=== PATIENT | female | born 1990 | race Caucasian/White ===

== ENCOUNTER 2017-12-21 09:15 | Emergency (ER) | payer BC ==
[2017-12-21 09:35] VITALS: BP 145/101
--- NOTE | 2017-12-21 11:18 | EDM.PDOC ---
ED HPI GENERAL MEDICAL PROBLEM - General Chief Complaint: Genitourinary Problem Stated Complaint: KIDNEY INFECTION SENT BY CLINIC Time Seen by Provider: 12/21/17 11:02 Source of Information: Reports: Patient History Limitations: Reports: No Limitations - History of Present Illness INITIAL COMMENTS - FREE TEXT/NARRATIVE: The patient states that she developed right flank pain and frequent cloudy urination this past 12/19/2017. She denies having had recent dysuria. She had nausea, but no emesis, and no fever. She was seen by Lisa Gonzalez yesterday, 12/20/2017, where a urinalysis collected by clean-catch demonstrated 2+ occult blood with 5-10 RBCs, nitrite positive, 3+ leukocyte esterase, 5-10 WBCs, 5-10 epithelial cells, and moderate bacteria. A urine culture was ordered, and the patient was started on ciprofloxacin 500 mg po BID , which she states she has now taken 3 doses of. The urine culture is growing 60 -70,000 CFU/ml of gram-negative rods, along with mixed deacno suggestive of contamination. The patient now presents to the ED with a concern that her urinary tract infection is getting worse, since she has now developed left flank pain. She has still not developed a fever. The patient reports that when she gets urinary tract infections, they present with flank pain, and that she tends to get 2-3 urinary tract infections per year. The patient is sexually active. The patient does not have a PCP. Bilateral Flank Pain Score (Numeric/FACES): 7 - Related Data Allergies Allergy/AdvReac Type Severity Reaction Status Date / Time cefpodoxime proxetil Allergy Other Verified 12/21/17 09:34 [From Vantin] shellfish derived Allergy Other Verified 12/21/17 09:34 Home Meds: Home Meds Ibuprofen [Motrin] 200 - 800 mg PO Q6H PRN #50 tablet 02/24/15 [Rx] Ciprofloxacin HCl [Cipro] 500 mg PO BID 12/21/17 [History] FLUoxetine [PROzac] 1 cap PO DAILY 12/21/17 [History] MV-Mn/Iron/FA/Herbal Cmplx#190 [Vitamin D3 Complete Caplet] 500 mg PO DAILY [History] buPROPion HCl [Wellbutrin Xl] 1 tab PO DAILY 12/21/17 [History] Past Medical History Psychiatric History: Reports: Anxiety, Depression - Infectious Disease History Infectious Disease History: Reports: C-Difficile, Chicken Pox, Shingles - Past Surgical History HEENT Surgical History: Reports: Tonsillectomy GI Surgical History: Reports: Appendectomy Female Surgical History: Reports: Section (x 1) Social & Family History - Family History Family Medical History: Noncontributory - Tobacco Use Smoking Status *Q: Former Smoker Years of Tobacco use: 4 Packs/Tins Daily: 0.3 Month Tobacco Last Used: Quit Nov 2017 Second Hand Smoke Exposure: No - Alcohol Use Alcohol Use History: Yes Days Per Week of Alcohol Use: 0 Alcohol Use Frequency: Socially - Recreational Drug Use Recreational Drug Use: No - Living Situation & Occupation Living situation: Reports: , with Spouse, with Family (1 child) Occupation: Employed (timers inspector production) ED ROS GENERAL - Review of Systems Review Of Systems: ROS reveals no pertinent complaints other than HPI. ED EXAM, RENAL/ - Physical Exam Exam: See Below Exam Limited By: No Limitations General Appearance: Alert, WD/WN, No Apparent Distress Eye Exam: Bilateral Eye: Normal Inspection Ears: Normal External Exam, Hearing Grossly Normal Nose: Normal Inspection, No Blood Throat/Mouth: Normal Inspection, Normal Lips, Normal Voice, No Airway Compromise Head: Atraumatic, Normocephalic Neck: Normal Inspection, Full Range of Motion Respiratory/Chest: No Respiratory Distress, Lungs Clear, Normal Breath Sounds, No Accessory Muscle Use Cardiovascular: Normal Peripheral Pulses, Regular Rate, Rhythm, No Gallop, No JVD, No Murmur, No Rub GI/Abdominal: Normal Bowel Sounds, Soft, No Organomegaly, No Distention, No Abnormal Bruit, No Mass, Tender (Mild, upper abdominal only. No lower abdominal or suprapubic tenderness.), Other (Obese) Rectal (Female) Exam: Deferred Back Exam: Normal Inspection, Full Range of Motion, CVA Tenderness (R). No: CVA Tenderness (L) Extremities: Normal Inspection, Normal Range of Motion, No Pedal Edema, Normal Capillary Refill Neurological: Alert, Oriented, Normal Cognition, No Motor/Sensory Deficits Psychiatric: Normal Affect Skin Exam: Warm, Dry, Intact, Normal Color, No Rash Course - Vital Signs Last Recorded V/S: Last Vital Signs Temp 36.4 C 12/21/17 09:27 Pulse 64 12/21/17 09:27 Resp 16 12/21/17 09:27 BP 145/101 H 12/21/17 09:27 Pulse Ox 97 12/21/17 09:27 - Orders/Labs/Meds Labs: Laboratory Tests 12/21/17 12/21/17 Range/Units 10:15 11:11 Urine Color Yellow (Yellow) Urine Appearance Clear (Clear) Urine pH 8.5 H (5.0-8.0) Ur Specific [place] 1.020 (1.005-1.030) Urine Protein Negative (Negative) Urine Glucose (UA) Negative (Negative) Urine Ketones Negative (Negative) Urine Occult Blood Negative (Negative) Urine Nitrite Negative (Negative) Urine Bilirubin Negative (Negative) Urine Urobilinogen 0.2 (0.2-1.0) Ur Leukocyte Esterase Negative (Negative) Urine RBC 0-5 (0-5) /hpf Urine WBC 0-5 (0-5) /hpf Ur Epithelial Cells 0-5 (0-5) /hpf Urine Bacteria Not seen (FEW) /hpf Urine Mucus Few (FEW) /hpf Urine HCG, Qual Negative (NEGATIVE) Meds: Medications Discontinued Medications Generic Name Dose Route Start Last Admin Trade Name Freq PRN Reason Stop Dose Admin Ibuprofen 600 mg 12/21/17 11:40 12/21/17 11:54 Motrin PO 12/21/17 11:41 600 mg ONETIME ONE Administration - Re-Assessments/Exams Free Text/Narrative Re-Assessment/Exam: 12/21/17 11:41 Test results discussed with the patient. Today's urinalysis is entirely normal. Yesterday's urinalysis is consistent with a UTI, although it is conceivable that the abnormalities were due to contamination. We will not know for sure until the final urine culture is available. Nevertheless, I think it highly likely that the patient in fact has a UTI, but with today's normal UA results, the ciprofloxacin is effective, and I am not recommending a switch to a different antibiotic. I'm recommending that the patient take [id number] ibuprofen as needed for discomfort. Departure - Departure Time of Disposition: 11:43 Disposition: Home, Self-Care 01 Condition: Good Clinical Impression: UTI (urinary tract infection) - Discharge Information Instructions: Urinary Tract Infection, Adult Referrals: Dinius,Lisa L, PA [Primary Care Provider] - Forms: ED Department Discharge Additional Instructions: You were seen in the emergency room for bilateral flank pain, urinary frequency , and nausea. Workup in the ER included a repeat urinalysis and urine test. Today's urinalysis is entirely normal. It was compared to yesterday's urinalysis , which was consistent with a urinary tract infection. This indicates that the ciprofloxacin that you are on is effective in treating your urinary tract infection, and we are not recommending a switch to a different antibiotic. Stay adequately hydrated. Take [id number] Tylenol or ibuprofen as needed for discomfort. If any other problems, please do not hesitate to return to the ER.
[2017-12-21] MEDS ORDERED: Ibuprofen 600 MG Tab PO ONE (11:40)
== END 2017-12-21 11:57 | disposition home or self-care (01) ==
LOC: JD.ED 09:15
DX: N39.0 Urinary tract infection, site not specified (principal); Z88.1 Allergy status to other antibiotic agents; Z91.013 Allergy to seafood; Z79.899 Other long term (current) drug therapy; Z87.891 Personal history of nicotine dependence
CPT/HCPCS: 81001; 81025; 99284; A9270; P9612; 99282

== ENCOUNTER 2019-08-10 17:01 | Emergency (ER) | payer BC ==
[2019-08-10 17:11] VITALS: BP 136/90; PULSE 61
[2019-08-10] MEDS ORDERED: Sodium Chloride 0.9% 10 ML Syringe FLUSH PRN (17:32)
[2019-08-10] MEDS ORDERED: Lactated Ringers 1,000 ML IV SCH (17:45)
--- NOTE | 2019-08-10 19:03 | US ---
Bilateral upper extremity venous ultrasound: Duplex and color flow imaging was obtained of the right and left internal, subclavian, axillary, brachial, cephalic, basilic, radial and ulnar veins. Findings: Normal phasic flow, augmentation and compression is seen. Impression: 1. No evidence of venous thrombosis within the right or left upper extremities. Diagnostic code #1
--- NOTE | 2019-08-10 19:46 | EDM.PDOC ---
ED HPI GENERAL MEDICAL PROBLEM - General Chief Complaint: General Stated Complaint: RHABDOMYOLYSIS,SENT BY DR Olguin Seen by Provider: 08/10/19 17:17 Source of Information: Reports: Patient, Provider History Limitations: Reports: No Limitations - History of Present Illness INITIAL COMMENTS - FREE TEXT/NARRATIVE: The patient was sent over from the walk in clinic for possible rhabdomyolisis or DVTs in her arms. She worked out on Wednesday and the next day her arms were sore and then they swelled up in the upper arm and forearms. She said she also did not feel right she was a little confused at times and had generalized weakness. She noticed no dark urine. She has no fever, chills, cough, chest pain or shortness of breath. She has no abdominal pain, nausea or vomiting. Onset: Gradual Duration: Day(s): (4) Location: Reports: Upper Extremity, Left, Upper Extremity, Right Quality: Reports: Sharp Severity: Moderate Improves with: Reports: None Worsens with: Reports: None Associated Symptoms: Reports: No Other Symptoms Bilateral Arm Pain Score (Numeric/FACES): 4 - Related Data Allergies Allergy/AdvReac Type Severity Reaction Status Date / Time cefpodoxime proxetil Allergy Other Verified 08/10/19 17:11 [From Vantin] shellfish derived Allergy Other Verified 08/10/19 17:11 Home Meds: Home Meds . [No Known Home Meds] 08/10/19 [History] Past Medical History - Past Health History Medical/Surgical History: Denies Medical/Surgical History Genitourinary History: Reports: UTI, Recurrent Psychiatric History: Reports: Anxiety, Depression - Infectious Disease History Infectious Disease History: Reports: C-Difficile, Chicken Pox, Shingles - Past Surgical History HEENT Surgical History: Reports: Myringotomy w Tube(s), Tonsillectomy GI Surgical History: Reports: Appendectomy, Other (See Below) Other GI Surgeries/Procedures: gastric sleeve Female Surgical History: Reports: Section Social & Family History - Family History Family Medical History: Noncontributory - Tobacco Use Smoking Status *Q: Current Some Day Smoker Years of Tobacco use: 5 Packs/Tins Daily: 0.1 - Caffeine Use Caffeine Use: Reports: Energy Drinks - Recreational Drug Use Recreational Drug Use: No - Living Situation & Occupation Living situation: Reports: , with Spouse, with Family (1 child) Occupation: Employed (time study engineer production) ED ROS GENERAL - Review of Systems Review Of Systems: See Below Constitutional: Reports: No Symptoms HEENT: Reports: No Symptoms Respiratory: Reports: No Symptoms Cardiovascular: Reports: No Symptoms Endocrine: Reports: No Symptoms GI/Abdominal: Reports: No Symptoms : Reports: No Symptoms Musculoskeletal: Reports: Other (Edema to both upper arms with pain upon palpation) ED EXAM, GENERAL - Physical Exam Exam: See Below Exam Limited By: No Limitations General Appearance: Alert, No Apparent Distress Ears: Normal External Exam Nose: Normal Inspection Head: Atraumatic, Normocephalic Neck: Normal Inspection Respiratory/Chest: No Respiratory Distress, Lungs Clear, Normal Breath Sounds Cardiovascular: Regular Rate, Rhythm, No Edema, No Murmur GI/Abdominal: Soft, Non-Tender, No Organomegaly, No Mass Back Exam: Normal Inspection Extremities: Other (Edema of both upper arms with pain upon palpation. Good sensation and pulses distally.) Course - Vital Signs Last Recorded V/S: Last Vital Signs Temp 98.2 F 08/10/19 17:08 Pulse 61 08/10/19 17:08 Resp 19 08/10/19 17:08 BP 136/90 08/10/19 17:08 Pulse Ox 100 08/10/19 17:08 - Orders/Labs/Meds Orders: Active Orders 24 hr Category Date Time Status Cardiac Monitoring [RC] . DIRECTED Care 08/10/19 17:32 Active Peripheral IV Care [RC] . DIRECTED Care 08/10/19 17:33 Active UA W/MICROSCOPIC [URIN] Stat Lab 08/10/19 19:25 Results Lactated Ringers [Ringers, Lactated] 1,000 ml Med 08/10/19 17:45 Active IV .BOLUS Sodium Chloride 0.9% [Saline Flush] Med 08/10/19 17:32 Active 10 ml FLUSH ASDIRECTED PRN Peripheral IV Insertion Adult [OM.PC] Stat Oth 08/10/19 17:32 Ordered Medication Orders Lactated Ringer's (Ringers, Lactated) 1,000 mls @ 500 mls/hr IV .BOLUS SPENSER Last Admin: 08/10/19 17:45 Dose: 500 mls/hr Sodium Chloride (Saline Flush) 10 ml FLUSH ASDIRECTED PRN PRN Reason: Keep Vein Open Last Admin: 08/10/19 17:46 Dose: 10 ml Labs: Laboratory Tests 08/10/19 08/10/19 08/10/19 Range/Units 17:39 17:39 19:25 WBC 6.51 (3.98-10.04) K/mm3 RBC 4.26 (3.98-5.22) M/mm3 Hgb 13.4 D (11.2-15.7) gm/dl Hct 37.3 (34.1-44.9) % MCV 87.6 (79.4-94.8) fl MCH 31.5 (25.6-32.2) pg MCHC 35.9 H (32.2-35.5) g/dl RDW Std Deviation 38.0 (36.4-46.3) fL Plt Count 232 (182-369) K/mm3 MPV 9.4 (9.4-12.3) fl Neut % (Auto) 60.7 (34.0-71.1) % Lymph % (Auto) 30.9 (19.3-51.7) % [place] % (Auto) 5.8 (4.7-12.5) % Eos % (Auto) 2.3 (0.7-5.8) Baso % (Auto) 0.3 (0.1-1.2) % Neut # (Auto) 3.95 (1.56-6.13) K/mm3 Lymph # (Auto) 2.01 (1.18-3.74) K/mm3 [place] # (Auto) 0.38 H (0.24-0.36) K/mm3 Eos # (Auto) 0.15 (0.04-0.36) K/mm3 Baso # (Auto) 0.02 (0.01-0.08) K/mm3 Sodium 140 (136-145) mEq/L Potassium 3.7 (3.5-5.1) mEq/L Chloride 105 (98-107) mEq/L Carbon Dioxide 27 (21-32) mEq/L Anion Gap 11.7 (5-15) BUN 11 (7-18) mg/dL Creatinine 0.9 (0.55-1.02) mg/dL Est Cr Clr Drug Dosing 81.80 mL/min Estimated GFR (MDRD) > 60 (>60) mL/min BUN/Creatinine Ratio 12.2 L (14-18) Glucose 85 (74-106) mg/dL Calcium 8.8 (8.5-10.1) mg/dL Total Bilirubin 0.5 (0.2-1.0) mg/dL AST 129 H (15-37) U/L ALT 163 H (14-59) U/L Alkaline Phosphatase 42 L (46-116) U/L Creatine Kinase 2492 H (26-192) U/L Total Protein 6.9 (6.4-8.2) g/dl Albumin 3.9 (3.4-5.0) g/dl Globulin 3.0 gm/dL Albumin/Globulin Ratio 1.3 (1-2) Urine Color Yellow (Yellow) Urine Appearance Clear (Clear) Urine pH 6.5 (5.0-8.0) Ur Specific [place] 1.020 (1.005-1.030) Urine Protein Negative (Negative) Urine Glucose (UA) Negative (Negative) Urine Ketones Trace H (Negative) Urine Occult Blood 1+ H (Negative) Urine Nitrite Negative (Negative) Urine Bilirubin Negative (Negative) Urine Urobilinogen 1.0 (0.2-1.0) Ur Leukocyte Esterase Negative (Negative) Meds: Medications Generic Name Dose Route Start Last Admin Trade Name Freq PRN Reason Stop Dose Admin Lactated Ringer's 1,000 mls @ 500 mls/hr 08/10/19 17:45 08/10/19 17:45 Ringers, Lactated IV 500 mls/hr .BOLUS SPENSER Administration Sodium Chloride 10 ml 08/10/19 17:32 08/10/19 17:46 Saline Flush FLUSH 10 ml ASDIRECTED PRN Administration Keep Vein Open - Re-Assessments/Exams Free Text/Narrative Re-Assessment/Exam: 08/10/19 19:45 I ordered an IV NS 1L bolus, labs and an US of both arms. The US was negative for DVT. Her CBC looks good. Her AST was elevated at 129. Her ALT was elevated at 113. Her CK was elevated at 2492. Her UA shows no UTI. 08/10/19 19:51 I do not think she needs to be admitted. I will have her return for repeat labs. Departure - Departure Time of Disposition: 19:55 Disposition: Home, Self-Care 01 Condition: Good Clinical Impression: Rhabdomyolysis Qualifiers: Rhabdomyolysis type: non-traumatic Qualified Code(s): M62.82 - Rhabdomyolysis - Discharge Information *PRESCRIPTION DRUG MONITORING PROGRAM REVIEWED*: No *COPY OF PRESCRIPTION DRUG MONITORING REPORT IN PATIENT LILI: No Referrals: Jolene Grider MD [Primary Care Provider] - 1 Week Forms: ED Department Discharge Additional Instructions: Drink plenty of fluids. Do not do any heavy lifting for about a week. Please return sometime tomorrow to have labs redrawn. Please return if you are worse. - My Orders Last 24 Hours: My Active Orders 08/10/19 17:32 Cardiac Monitoring [RC] . DIRECTED Sodium Chloride 0.9% [Saline Flush] 10 ml FLUSH ASDIRECTED PRN Peripheral IV Insertion Adult [OM.PC] Stat 08/10/19 17:33 Peripheral IV Care [RC] . DIRECTED 08/10/19 17:45 Lactated Ringers [Ringers, Lactated] 1,000 ml IV .BOLUS 08/10/19 19:25 UA W/MICROSCOPIC [URIN] Stat - Assessment/Plan Last 24 Hours: My Active Orders 08/10/19 17:32 Cardiac Monitoring [RC] . DIRECTED Sodium Chloride 0.9% [Saline Flush] 10 ml FLUSH ASDIRECTED PRN Peripheral IV Insertion Adult [OM.PC] Stat 08/10/19 17:33 Peripheral IV Care [RC] . DIRECTED 08/10/19 17:45 Lactated Ringers [Ringers, Lactated] 1,000 ml IV .BOLUS 08/10/19 19:25 UA W/MICROSCOPIC [URIN] Stat
== END 2019-08-10 20:15 | disposition home or self-care (01) ==
LOC: JD.ED 17:01
DX: M62.82 Rhabdomyolysis (principal); F17.200 Nicotine dependence, unspecified, uncomplicated; Z91.013 Allergy to seafood; Z88.1 Allergy status to other antibiotic agents
CPT/HCPCS: 36415; 80053; 81001; 82550; 85025; 93970; 96360; 96361; 99284; J7120